=== PATIENT | female | born 1980 | race American Indian/Alaskan Native ===

== ENCOUNTER 2021-05-09 13:51 | Outpatient (CLI) | payer MEDICARE | END 2021-05-09 13:52 | disposition home or self-care (01) | LOC: LAB 13:51 | PROVIDERS: ATTEND Psychiatry & Neurology Psychiatry | DX: F31.9 Bipolar disorder, unspecified (principal) | CPT/HCPCS: 36415; 80178 ==

== ENCOUNTER 2021-05-23 16:35 | Emergency (ER) | payer MEDICARE ==
[2021-05-23 16:47] VITALS: BP 115/60
--- NOTE | 2021-05-23 17:14 | Emergency Department Report ---
ED General Adult HPI - General Chief complaint: Chest Pain Stated complaint: MENTAL HEALTH Time Seen by Provider: 05/23/21 17:07 Source: patient Mode of arrival: Ambulatory Limitations: No Limitations - History of Present Illness Initial comments: 40-year-old -[place] female patient presents with complaints of chest pain this morning. She denies any current chest pain and states the pain felt like a tightness across her left and right side of her chest. She denies any shortness of breath, cough/hemoptysis, history of DVT/PE/cancer, recent long travel, fever/chills/sweats, or loss of taste/smell. Patient [place] when she decided to stop by the ED to get medical clearance. She denies SI/HI. Patient states that she no longer wishes to be evaluated for her chest pain because she is feeling better and she does not want to be here at night. She declines repeat EKG, blood work, and chest x-ray. Urged patient to be evaluated and she states she would like to be discharged home. Life- threatening illnesses discussed in detail with patient who verbalizes understanding Severity scale (0 -10): 2 - Related Data Allergies Allergy/AdvReac Type Severity Reaction Status Date / Time aspirin Allergy Rash Verified 05/23/21 16:48 Penicillins Allergy Swelling Verified 05/23/21 16:47 ED Review of Systems ROS: Stated complaint: MENTAL HEALTH Other details as noted in HPI Constitutional: denies: chills, fever, malaise Respiratory: denies: cough, shortness of breath Cardiovascular: chest pain. denies: palpitations Gastrointestinal: denies: abdominal pain, nausea, vomiting Skin: denies: change in color Neurological: denies: headache ED Past Medical Hx - Past Medical History Previous Medical History?: Yes Additional medical history: MH, Takes Luke for mood stabilization - Surgical History Past Surgical History?: No ED Physical Exam - General Limitations: No Limitations General appearance: alert, in no apparent distress, obese - Head Head exam: Present: atraumatic, normocephalic - Eye Eye exam: Present: normal appearance. Absent: scleral icterus - Respiratory Respiratory exam: Present: normal lung sounds bilaterally. Absent: respiratory distress, chest wall tenderness - Cardiovascular Cardiovascular Exam: Present: regular rate, normal rhythm. Absent: systolic murmur, diastolic murmur, rubs, gallop - Extremities Exam Extremities exam: Absent: calf tenderness (No swelling or pain noted bilaterally to lower extremities) - Neurological Exam Neurological exam: Present: alert, oriented X3 - Psychiatric Psychiatric exam: Present: normal affect, normal mood - Skin Skin exam: Present: warm, dry, intact, normal color. Absent: rash, diaphoretic ED Course Vital Signs 05/23/21 16:45 Temperature 97.9 F Pulse Rate 97 H Respiratory 18 Rate Blood Pressure 115/60 [Right] O2 Sat by Pulse 98 Oximetry ED Medical Decision Making - Medical Decision Making 40-year-old -[place] female patient presents with complaints of chest pain this morning. She denies any current chest pain and states the pain felt like a tightness across her left and right side of her chest. She denies any shortness of breath, cough/hemoptysis, history of DVT/PE/cancer, recent long travel, fever/chills/sweats, or loss of taste/smell. Patient [place] when she decided to stop by the ED to get medical clearance. She denies SI/HI. Patient states that she no longer wishes to be evaluated for her chest pain because she is feeling better and she does not want to be here at night. She declines repeat EKG, blood work, and chest x-ray. Urged patient to be evaluated and she states she would like to be discharged home. Life- threatening illnesses discussed in detail with patient who verbalizes understanding Critical care attestation.: If time is entered above; I have spent that time in minutes in the direct care of this critically ill patient, excluding procedure time. ED Disposition Clinical Impression: Other chest pain Disposition: 01 HOME / SELF CARE / HOMELESS Is pt being admited?: No Condition: Stable Instructions: Nonspecific Chest Pain, Adult, [id number] Referrals: [facility] [Provider Group] - 2-3 Days
--- NOTE | 2021-05-27 10:46 | Electrocardiograph Report ---
[facility] Test Date: 2021-05-23 Test Time: 16:55:46 Pat Name: DEBORAH HOWELL Department: Room: Gender: F [employer] Officer: WILLARD : 1980 Requested By: CLARISSA MIMS Order Number: [id number] Reading MD: Macario Irving Measurements Intervals [place] Rate: 92 P: 0 MS: 132 QRS: 0 QRSD: 138 T: QT: QTc: 0 Interpretive Statements EKG not interpretable due to multiple missing leads Electronically Signed On 05-27-2021 10:45:34 EST by Macario Irving
== END 2021-05-23 17:47 | disposition home or self-care (01) ==
LOC: ED 16:35 → EDBD 16:35 → ED 17:47
DX: R07.89 Other chest pain (principal); Z88.0 Allergy status to penicillin; Z88.6 Allergy status to analgesic agent; Z79.899 Other long term (current) drug therapy
CPT/HCPCS: 93005; 99282